=== PATIENT | male | born 1985 | race Caucasian/White ===

== ENCOUNTER 2017-11-12 14:51 | Emergency (ER) | payer BC ==
[2017-11-12] MEDS ORDERED: Ketorolac 60 MG/2 ML SDV IM ONE (15:26)
[2017-11-12] MEDS ORDERED: Lidocaine 2% Jelly 30 ML Tube MUCMEM STA (15:26)
[2017-11-12] MEDS ORDERED: Diphtheria,Pertussis(Acell),Tetanus Vaccine 0.5 ML SDV IM ONE (15:28)
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
[2017-11-12] MEDS ORDERED: Lidocaine 2% Viscous Solution 15 ML Cup ONE (15:37)
[2017-11-12] MEDS ORDERED: Bacitracin Oint 1 GM U/D Packet TOP ONE (16:00)
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
== END 2017-11-12 16:36 | disposition home or self-care (01) ==
LOC: JP.ED 14:51
DX: S80.01XA Contusion of right knee, initial encounter (principal); Z23 Encounter for immunization; V86.56XA Driver of dirt bike or motor/cross bike injured in nontraffic accident, initial encounter
CPT/HCPCS: 73562; 90471; 90715; 96372; 99284; A9270; J1885